=== PATIENT | female | born 1965 | race Caucasian/White ===

== ENCOUNTER 2016-03-24 03:01 | Emergency (ER) | payer BC ==
[~2016-03-24] VITALS: Ht 149.9 cm; Wt 72.7 kg
[~2016-03-24 03:01] MED LIST: CIPRO 500MG TA500 MG PO; CLOTRIMAZOLE TR10 MG MM; FLAGYL500 MG PO; LACTULOSE SYR 10/15 PO; MAXALT10 MG PO; METHOCARBAMOL500 MG PO; MIRALAX 17GM PK1 PKT PO; NORCO 325 MG-51 TAB PO; PERCOCET 325 MG1 TA2 PO; PERCOCET 5/321 UDTAB PO; PROTONIX 40MG T40 MG PO; RELPAX; SEPTRA DS 8001 TAB PO; TRAMADOL50 MG PO; VENTOLIN0.09 MG IH; ZANAFLEX4 M1 PO; ZOFRAN 4MG T4 MG/TAB PO; [UNRECOGNIZED DRUG - OTHER]
[2016-03-24] MEDS ORDERED: CHOLESTEROL MED (03:21)
[2016-03-24] MEDS ORDERED: ESTRACE 1MG1 MG/TAB PO (03:22)
[2016-03-24] MEDS ORDERED: ULTRAM 50MG TAB50 MG PO (03:40)
[2016-03-24 04:22] VITALS: BP 120/71; PULSE 87; TEMP 98.8
== END 2016-03-24 04:29 | disposition home or self-care (01) ==
LOC: COL.ER 03:01
DX: R68.84 Jaw pain (principal); R51 Headache; M54.2 Cervicalgia; M79.662 Pain in left lower leg; M79.661 Pain in right lower leg

== ENCOUNTER → 2016-04-16 | Outpatient (CLI) | payer BC ==
[~2016-04-16] MED LIST changes: +CHOLESTEROL MED; +ESTRACE 1MG1 MG/TAB PO; +ULTRAM 50MG TAB50 MG PO
== END ==
LOC: COL.RAD 11:09
DX: M54.2 Cervicalgia (principal); R05 Cough

== ENCOUNTER → 2016-05-01 | Outpatient (CLI) | payer BC | LOC: MC.RAD 09:59 | DX: N63 Unspecified lump in breast (principal); D48.61 Neoplasm of uncertain behavior of right breast ==

== ENCOUNTER → 2016-08-04 | Outpatient (CLI) | payer BC | LOC: MC.RAD 13:30 | DX: Z12.39 Encounter for other screening for malignant neoplasm of breast (principal) ==

== ENCOUNTER → 2016-08-11 | Outpatient (CLI) | payer BC | LOC: COL.RAD 10:30 | DX: M47.22 Other spondylosis with radiculopathy, cervical region (principal); M47.24 Other spondylosis with radiculopathy, thoracic region; M51.34 Other intervertebral disc degeneration, thoracic region; M48.04 Spinal stenosis, thoracic region; M48.06 Spinal stenosis, lumbar region; N63 Unspecified lump in breast; Z98.1 Arthrodesis status; Z98.890 Other specified postprocedural states | CPT/HCPCS: A9585 ==

== ENCOUNTER → 2017-01-12 | Outpatient (CLI) | payer BC | LOC: COL.RAD 15:00 | DX: R10.32 Left lower quadrant pain (principal) | CPT/HCPCS: Q9967 ==

== ENCOUNTER 2017-03-12 17:38 | Emergency (ER) | payer BC ==
[~2017-03-12] VITALS: Ht 162.6 cm; Wt 76.5 kg
[2017-03-12 17:52] VITALS: BP 162/92; TEMP 97.9
[2017-03-12 20:19] LABS: BASO # 0.1 (0.0-0.2); EOS # 0.1 (0.0-0.7); HEMATOCRIT 40.3 % (37.0-47.0); HEMOGLOBIN 13.6 g/dl (12.5-16.0); LYMPH # 2.5 (1.2-3.4); MEAN CELL VOLUME 90 fl (80.0-100.0); MEAN CORPUSCULAR HEMOGLOBIN 30 pg (27.0-31.0); MEAN CORPUSCULAR HGB CONC 34 g/dl (33.0-37.0); MEAN PLATELET VOLUME 9.8 fl (7.4-10.4); MONO # 0.5 (0.1-0.6); MONO % 7.8 % (1.7-9.3); PLATELET COUNT 273 K/mm3 (130-400); RED BLOOD COUNT 4.48 M/mm3 (4.10-5.30); REDCELL DISTRIBUTION WIDTH-CV 13.6 % (11.5-14.5)
[2017-03-12 20:21] LABS: COLLECTION METHOD CLEAN CATCH
[2017-03-12 20:27] LABS: MUCOUS Present /lpf; PH 5 (5-8); SQUAMOUS EPITHELIAL 0-2 /hpf; URINE APPEARANCE Clear; URINE BACTERIA None Seen /hpf; URINE BILIRUBIN Negative (NEGATIVE); URINE BLOOD Negative (NEGATIVE); URINE COLOR Yellow; URINE GLUCOSE Negative (NEGATIVE); URINE KETONE Negative (NEGATIVE); URINE LEUKOCYTE ESTERASE Negative (NEGATIVE); URINE NITRATE Negative (NEGATIVE); URINE PROTEIN(semi-quant) Negative (NEGATIVE); URINE RBC 0-2 /hpf; URINE UROBILINOGEN Negative (NEGATIVE)
[2017-03-12 20:28] LABS: ALBUMIN 4.3 gm/dL (3.5-5.0); BILIRUBIN,TOTAL 0.4 mg/dL (0.0-1.0); CALCIUM 9.8 mg/dL (8.4-10.2); CREATININE, serum 0.55 mg/dL (0.52-1.25); POTASSIUM 3.9 mmol/L (3.4-5.0); TOTAL PROTEIN 7.3 gm/dL (6.4-8.2)
[2017-03-12] MEDS ORDERED: PREDNISONE20 MG PO (21:52)
[2017-03-12] MEDS ORDERED: BENTYL 20MG20 MG/TAB PO (21:52)
[2017-03-12 22:02] VITALS: PULSE 75
== END 2017-03-12 22:03 | disposition home or self-care (01) ==
LOC: COL.ER 17:38
PROVIDERS: Emergency Medicine
DX: R10.84 Generalized abdominal pain (principal); G43.909 Migraine, unspecified, not intractable, without status migrainosus; J45.909 Unspecified asthma, uncomplicated; E78.00 Pure hypercholesterolemia, unspecified; Z90.89 Acquired absence of other organs; Z90.49 Acquired absence of other specified parts of digestive tract; Z90.710 Acquired absence of both cervix and uterus
CPT/HCPCS: J7512

== ENCOUNTER → 2018-01-21 | Outpatient (CLI) | payer BC ==
[~2018-01-21] MED LIST changes: +BENTYL 20MG20 MG/TAB PO; +PREDNISONE20 MG PO
== END ==
LOC: MC.RAD 13:56
DX: Z12.31 Encounter for screening mammogram for malignant neoplasm of breast (principal); N63.10 Unspecified lump in the right breast, unspecified quadrant

== ENCOUNTER → 2018-01-22 | Outpatient (CLI) | payer BC | LOC: MC.RAD 09:30 | DX: N63.10 Unspecified lump in the right breast, unspecified quadrant (principal) ==

== ENCOUNTER → 2019-03-16 | Outpatient (CLI) | payer BC | LOC: COL.RAD 07:59 | DX: K57.92 Diverticulitis of intestine, part unspecified, without perforation or abscess without bleeding (principal); K92.1 Melena; Z90.49 Acquired absence of other specified parts of digestive tract; Z90.710 Acquired absence of both cervix and uterus | CPT/HCPCS: Q9967 ==

== ENCOUNTER → 2019-11-07 | Outpatient (CLI) | payer BC | LOC: ZCOL.LAB 15:50 | DX: R57.1 Hypovolemic shock (principal) ==

== ENCOUNTER 2021-03-28 19:57 | Emergency (ER) | payer OTHER ==
[~2021-03-28] VITALS: Ht 149.9 cm; Wt 78.2 kg
[2021-03-28 20:11] VITALS: TEMP 98.7
[2021-03-28 20:55] LABS: BASO # 0.1 K/mm3 (0.0-0.2); BASO % 0.8 % (0.0-2.0); EOS # 0.1 K/mm3 (0.0-0.7); EOS % 0.8 % (0.0-4.0); GRAN # 2.8 K/mm3 (1.4-6.5); GRAN % 45.4 % (42.2-75.2); HEMATOCRIT 39.1 % (37.0-47.0); HEMOGLOBIN 13.3 g/dl (12.5-16.0); LYMPH # 2.7 K/mm3 (1.2-3.4); LYMPH % 44.6 % (20.0-51.0); MEAN CELL VOLUME 85 fl (80.0-100.0); MEAN CORPUSCULAR HEMOGLOBIN 29 pg (27-31); MEAN CORPUSCULAR HGB CONC 34 g/dl (33.0-37.0); MEAN PLATELET VOLUME 10.4 fl (7.4-10.4); MONO # 0.5 K/mm3 (0.1-0.6); MONO % 8.2 % (1.7-9.3); PLATELET COUNT 312 K/mm3 (130-400); RED BLOOD COUNT 4.58 M/mm3 (4.10-5.30); REDCELL DISTRIBUTION WIDTH-CV 13.6 % (11.5-14.5)
[2021-03-28 21:39] VITALS: BP 108/64; PULSE 76
== END 2021-03-28 21:49 | disposition home or self-care (01) ==
LOC: COL.ER 19:57
PROVIDERS: Personal Emergency Response Attendant
DX: R05.9 Cough, unspecified (principal)

== ENCOUNTER → 2023-10-28 | Outpatient (CLI) | payer BC ==
[~2023-10-28] MED LIST changes: +ACIPHEX20 MG PO; +ELIQUIS 5MG PO; +MOUNJARO5 MG/0.5 M SQ; +NURTEC ODT75 MG PO
== END ==
LOC: COL.RAD 07:15
DX: K83.9 Disease of biliary tract, unspecified (principal); K80.20 Calculus of gallbladder without cholecystitis without obstruction; K43.9 Ventral hernia without obstruction or gangrene; R93.5 Abnormal findings on diagnostic imaging of other abdominal regions, including retroperitoneum; Z90.49 Acquired absence of other specified parts of digestive tract